=== PATIENT | male | born 1995 | race Caucasian/White ===

== ENCOUNTER 2017-08-28 03:51 | Emergency (ER) | payer OTHER ==
[2017-08-28 04:05] VITALS: RESP 16
--- NOTE | 2017-08-28 04:06 | EDPHY ---
H & P Time Seen by Provider: 08/28/17 04:04 HPI/ROS: CC: Throat pain HPI: This 21-year-old male presents to the emergency department tonight with his mother complaining of throat pain for the last week. He was seen as 3 days ago at an urgent care and diagnosed empirically with strep throat. He states the rapid test was negative and he has not been notified of the culture yet. He has been taking amoxicillin twice a day for the last 3 days and had a steroid shot as well. His throat continues to be swollen and painful and has a white coating on it. He has been taking Tylenol for pain. He denies having a fever, headache, neck pain, abdominal pain, or body aches. He does not have a rash. His only ill contact was his mother who had a cold a few weeks ago. He has had strep throat in the past. His immunizations are up-to-date. He has an appointment with his Primary Care Provider this morning at 0745. REVIEW OF SYSTEMS: Constitutional: No fever, no chills. Eyes: No discharge. ENT: See HPI. Respiratory: No cough, no shortness of breath. Cardiac: No chest pain, no palpitations. Gastrointestinal: No abdominal pain, no vomiting. Musculoskeletal: No neck or back pain. Skin: No rashes. Neurological: No headache. Past Medical/Surgical History: PMH: Strep pharyngitis, pneumonia PSH: Wisner teeth NKDA Meds: Amoxicillin, Tylenol PRN Social History: Former tobacco user; denies alcohol or marijuana Smoking Status: Former smoker Physical Exam: General Appearance: Alert, mod distress. Muffled voice. Eyes: Pupils equal and round no pallor or injection. ENT, Mouth: Mucous membranes are moist. Enlarged tonsils bilaterally with white exudate right side greater than left. Uvula midline. No sublingual swelling. Respiratory: There are no retractions, lungs are clear to auscultation. Cardiovascular: Regular rate and rhythm. Gastrointestinal: Abdomen is soft and nontender, no masses, bowel sounds normal. Neurological: Awake and alert, sensory and motor exams grossly normal. Skin: Warm and dry, no rashes. Musculoskeletal: Neck is supple nontender. Extremities are symmetrical, full range of motion. Psychiatric: Patient is oriented X 3, there is no agitation. DIFFERENTIAL DIAGNOSIS: After history and physical exam differential diagnosis was considered for pharyngitis, strep pharyngitis, mononucleosis, tonsillitis, retropharyngeal abscess. Constitutional: Initial Vital Signs Temperature (C) 97.7 F 08/28/17 03:55 Heart Rate 89 08/28/17 03:55 Respiratory Rate 16 08/28/17 03:55 Blood Pressure 123/70 H 08/28/17 03:55 O2 Sat (%) 97 08/28/17 03:55 O2 Delivery Mode Room Air Allergies/Adverse Reactions: No Known Allergies Allergy (Unverified 08/28/17 04:00) Home Medications: Medication Instructions Recorded predniSONE 1 each PO DAILY #21 tab 08/28/17 Medical Decision Making ED Course/Re-evaluation: The patient was seen and examined. His vital signs were reviewed. He was given a dose of liquid Decadron 10 mg orally and ibuprofen 800 mg. his CBC shows slightly elevated white blood cell count. His chemistry panel shows mildly elevated transaminases. His Monospot was positive. The patient was advised to discontinue his amoxicillin. Should his strep culture come back positive he should ask them to prescribe him a different class of antibiotics. I will give him a steroid taper. He should have no contact sports for the next month. He could consider cancelling his appointment with his primary care provider this morning at 0745 and arrange for a follow-up visit before the weekend or early next week. He will return to the emergency room if he has difficulty swallowing or breathing, jaundice or increased abdominal pain or any other concerns. - Data Points Laboratory Results: Laboratory Results 08/28/17 04:25 08/28/17 04:25 08/28/17 08/28/17 08/28/17 04:25 04:25 04:25 WBC 9.56 10^3/uL H 10^3/uL (3.80-9.50) RBC 5.30 10^6/uL 10^6/uL (4.40-6.38) Hgb 15.8 g/dL g/dL (13.7-17.5) Hct 45.8 % % (40.0-51.0) MCV 86.4 fL fL (81.5-99.8) MCH 29.8 pg pg (27.9-34.1) MCHC 34.5 g/dL g/dL (32.4-36.7) RDW 12.3 % % (11.5-15.2) Plt Count 205 10^3/uL 10^3/uL (150-400) MPV 9.0 fL fL (8.7-11.7) Neut % (Auto) Not Reported Lymph % (Auto) Not Reported [place] % (Auto) Not Reported Eos % (Auto) Not Reported Baso % (Auto) Not Reported Nucleat RBC Rel Count 0.0 % % (0.0-0.2) Absolute Neuts (auto) Not Reported Absolute Lymphs (auto) Not Reported Absolute Monos (auto) Not Reported Absolute Eos (auto) Not Reported Absolute Basos (auto) Not Reported Absolute Nucleated RBC 0.00 10^3/uL 10^3/uL (0-0.01) Immature Gran % Not Reported Seg Neutrophils % 32 % % Band Neutrophils % 2 % % Lymphocytes % 56 % % Monocytes % 10 % % Immature Gran # Not Reported Absolute Seg Neuts 3.1 K/MM3 K/MM3 (1.8-7) Absolute Band Neuts 0.2 K/MM3 K/MM3 (0-0.7) Absolute Lymphocytes 5.4 K/mm3 H K/mm3 (1.0-4.8) Absolute Monocytes 1.0 K/mm3 H K/mm3 (0-0.8) RBC/WBC/PLT Morphology NORMAL (NORMAL) Atypical Lymphocytes 1+ H Platelet Estimate ADEQUATE (ADEQ) Sodium 141 mEq/L mEq/L (134-144) Potassium 4.3 mEq/L mEq/L (3.5-5.2) Chloride 105 mEq/L mEq/L (97-110) Carbon Dioxide 25 mEq/l mEq/l (22-31) Anion Gap 11 mEq/L mEq/L (8-16) BUN 16 mg/dL mg/dL (7-23) Creatinine 0.8 mg/dL mg/dL (0.7-1.3) Estimated GFR > 60 Glucose 98 mg/dL mg/dL (70-100) Calcium 9.1 mg/dL mg/dL (8.5-10.4) Total Bilirubin 0.6 mg/dL mg/dL (0.1-1.4) Conjugated Bilirubin 0.5 mg/dL mg/dL (0.0-0.5) Unconjugated Bilirubin 0.1 mg/dL mg/dL (0.0-1.1) AST 60 IU/L H IU/L (17-59) ALT 145 IU/L H IU/L (21-72) Alkaline Phosphatase 82 IU/L IU/L (38-126) Total Protein 7.0 g/dL g/dL (6.3-8.2) Albumin 4.1 g/dL g/dL (3.5-5.0) Monoscreen POSITIVE H (NEGATIVE) Medications Given: Discontinued Medications Dexamethasone (Decadron Injection) 10 mg PO EDNOW ONE Stop: 08/28/17 04:15 Last Admin: 08/28/17 04:26 Dose: 10 mg Ibuprofen (Motrin Oral Solution) 800 mg PO EDNOW ONE Stop: 08/28/17 04:15 Last Admin: 08/28/17 04:26 Dose: 800 mg Departure - Departure Disposition: Home, Routine, Self-Care Clinical Impression: Mononucleosis Condition: Good Instructions: Mononucleosis (ED) Additional Instructions: Discontinue the amoxicillin previously prescribed. If, by chance, your strep culture returns positive as well, have them prescribe a different class of antibiotic than the amoxicillin. If your throat is not starting to improve in 2 days, you may start the steroid prescription as directed. Rest, drink plenty of fluids, Tylenol and/or Motrin for pain, no contact sports for at least a month. Return to the ER if you have increased difficulty swallowing or breathing or increased abdominal pain or any other concerns. See your primary care provider in the next 2-5 days. Referrals: Ron Sinha DO [Doctor of Osteopathy] - As per Instructions Prescriptions: predniSONE 1 each PO DAILY #21 tab
[2017-08-28] MEDS ORDERED: IBUPROFEN SUSP 100 MG/5 ML UDCUP PO ONE (04:14)
[2017-08-28] MEDS ORDERED: DEXAMETHASONE 10 MG/ML VIAL PO ONE (04:14)
[2017-08-28 04:32] LABS: ADD MORPH? NO; FRAGMENT RBC FLAG 0 (0-99); HEMATOCRIT 45.8 % (40.0-51.0); HEMOGLOBIN 15.8 g/dL (13.7-17.5); LEFT SHIFT FLG 0 (0-99); LIPEMIA HEMOLYSIS FLAG 90 (0-99); MEAN CELL HEMOGLOBIN 29.8 pg (27.9-34.1); MEAN CELL HEMOGLOBIN CONCENTR. 34.5 g/dL (32.4-36.7); MEAN CELL VOLUME 86.4 fL (81.5-99.8); PLATELET CLUMPS FLAG 0 (0-99); PLATELET COUNT 205 10^3/uL (150-400); RED CELL DISTRIBUTION WIDTH 12.3 % (11.5-15.2)
[2017-08-28 04:33] LABS: ADD DIFF? YES; ADD SCAN? NO; ATYPICAL LYMPHOCYTE FLAG 210 (0-99)
[2017-08-28 04:46] LABS: ALANINE AMINOTRANSFERASE 145 IU/L (21-72); ALBUMIN 4.1 g/dL (3.5-5.0); ALKALINE PHOSPHATASE 82 IU/L (38-126); ANION GAP 11 mEq/L (8-16); ASPARTATE AMINOTRANSFERASE 60 IU/L (17-59); BILIRUBIN,TOTAL 0.6 mg/dL (0.1-1.4); BILIRUBIN-CONJUGATED 0.5 mg/dL (0.0-0.5); BILIRUBIN-UNCONJUGATED 0.1 mg/dL (0.0-1.1); CALCIUM 9.1 mg/dL (8.5-10.4); CARBON DIOXIDE 25 mEq/l (22-31); CHLORIDE 105 mEq/L (97-110); CREATININE 0.8 mg/dL (0.7-1.3); GLOMERULAR FILTRATION RATE > 60; GLUCOSE 98 mg/dL (70-100); POTASSIUM 4.3 mEq/L (3.5-5.2); SODIUM 141 mEq/L (134-144)
[2017-08-28 04:51] LABS: PLATELET ESTIMATE ADEQUATE (ADEQ)
[2017-08-28 05:15] VITALS: BP 121/54; PULSE 76; TEMP 98.2; O2SAT 96
== END 2017-08-28 05:15 | disposition home or self-care (01) ==
LOC: CED 03:51
DX: B27.90 Infectious mononucleosis, unspecified without complication (principal); Z87.891 Personal history of nicotine dependence
CPT/HCPCS: 80048-PO; 80076-PO; 85025-PO; 86308-PO; J1100